=== PATIENT | female | born 1940 | race Caucasian/White ===

== ENCOUNTER 2018-09-15 13:47 | Inpatient (IN) | payer MEDICARE, OTHER | END 2018-09-16 16:46 | disposition home health service (06) | LOC: ER 13:47 → ORTHO 4S 17:18 ==

== ENCOUNTER 2019-02-07 11:32 | Emergency (ER) | payer MEDICARE, OTHER ==
[~2019-02-07] VITALS: Ht 152.4 cm; Wt 60.9 kg
[~2019-02-07 11:32] MED LIST: AMLO2.5T2 PO; ATOR20TA66 PO; BUPR150T8 PO; GABA-530 PO; LOSA25TA96 PO; MELO-100 PO; OMEP40CA13 PO
[2019-02-07 13:37] LABS: BASOPHILS % (AUTO) 0.2 % (0-1); EOSINOPHILS % (AUTO) 0 % (0-6); HEMATOCRIT 31.1 % (35.0-45.0); LYMPHOCYTES # (AUTO) 0.6 X10'3 (1.1-4.8); LYMPHOCYTES % (AUTO) 5.3 % (21-51); MEAN CORPUSCULAR HEMOGLOBIN 35.1 PG (27.0-31.0); MEAN CORPUSCULAR HGB CONC 35.2 g/dL (33.0-36.5); MEAN CORPUSCULAR VOLUME 99.7 FL (78-98); MEAN PLATELET VOLUME 8.2 FL (7.4-10.4); MONOCYTES # (AUTO) 0.2 X10'3 (0-0.9); MONOCYTES % (AUTO) 2.1 % (2-12); NEUTROPHILS % (AUTO) 92.4 % (42-75); PLATELET COUNT 157 X10'3 (140-440); RED BLOOD COUNT 3.12 X10'6 (4.20-5.60); RED CELL DISTRIBUTION WIDTH 12.9 % (11.5-14.5); WHITE BLOOD COUNT 10.8 X10'3 (4.5-11.0)
[2019-02-07 13:45] LABS: PARTIAL THROMBOPLASTIN TIME 33 SECONDS (22-32)
[2019-02-07 13:49] LABS: ALANINE AMINOTRANSFERASE 31 U/L (12-78); ALBUMIN 3.2 G/DL (3.4-5.0); ALBUMIN/GLOBULIN RATIO 0.9 (1.1-1.5); ALKALINE PHOSPHATASE 125 IU/L (46-116); ANION GAP 9 (8-16); ASPARTATE AMINO TRANSFERASE 33 U/L (10-37); BILIRUBIN,TOTAL 0.5 MG/DL (0.1-1.0); BLOOD UREA NITROGEN 17 MG/DL (7-18); BUN/CREATININE RATIO 15.6 (6.6-38.0); CALCIUM 8.8 MG/DL (8.5-10.1); CHLORIDE 95 MMOL/L (99-107); CREATININE 1.09 MG/DL (0.40-0.90); GLUCOSE 102 MG/DL (70-104); POTASSIUM 4.1 MMOL/L (3.5-5.1); SODIUM 128 MMOL/L (135-145); TOTAL CARBON DIOXIDE 23.8 MMOL/L (24-32); TOTAL PROTEIN 6.8 G/DL (6.4-8.2); eGFR 49 ML/MIN
[2019-02-07] MEDS ORDERED: CefTRIAXone 2gm/D5W 50ml 50 ML IV ONE (14:25)
[2019-02-07] MEDS ORDERED: normal saline 1000ML IV soln IV ONE (14:25)
[2019-02-07] MEDS ORDERED: albuterol 2.5 MG/3 ML nebule NEB ONE (14:25)
[2019-02-07 15:54] LABS: CLARITY,URINE CLOUDY (Clear); COLOR,URINE YELLOW (Yellow); GLUCOSE, URINE NEGATIVE (Neg); KETONES,URINE NEGATIVE (Neg); LEUKOCYTE ESTERASE ,URINE TRACE (Neg); NITRITES, URINE NEGATIVE (Neg); OCCULT BLOOD,URINE NEGATIVE (Neg); PROTEIN,URINE 30 mg/dl (Neg); UROBILINOGEN,URINE 0.2 E.U/dL (0.2-1.0)
[2019-02-07 15:55] LABS: UA COLLECTION TYPE CLN CATCH MIDSTREAM
[2019-02-07 15:59] LABS: BACTERIA,URINE 3+ /HPF (Neg); MUCUS STRANDS FEW /LPF (Neg); RBC,URINE 0-2 /HPF (0-2); SQUAMOUS EPITHELIAL CELL,UR MANY /LPF (FEW); WBC,URINE 0-4 /HPF (0-4)
[2019-02-07] MEDS ORDERED: LEVO750T21 PO (16:37)
[2019-02-07 16:55] VITALS: BP 122/59
== END 2019-02-07 17:02 | disposition home or self-care (01) ==
LOC: ER 11:32
DX: J18.9 Pneumonia, unspecified organism (principal); E86.0 Dehydration; E78.00 Pure hypercholesterolemia, unspecified; I10 Essential (primary) hypertension; R79.1 Abnormal coagulation profile; Z90.49 Acquired absence of other specified parts of digestive tract; Z90.89 Acquired absence of other organs; Z98.890 Other specified postprocedural states; Z79.899 Other long term (current) drug therapy
CPT/HCPCS: 36415; 71045; 80053; 81001; 83605; 84145; 84484; 85025; 85610; 85730; 87040; 93005; 94640; 94760; 96365; 99284; J0696; J7030

== ENCOUNTER 2019-09-04 11:22 | Emergency (ER) | payer MEDICARE, OTHER ==
[~2019-09-04] VITALS: Ht 154.9 cm; Wt 59.9 kg
[~2019-09-04 11:22] MED LIST changes: +ASPI-1265 PO; -ATOR20TA66 PO; +ATOR40TA PO; -LOSA25TA96 PO; +MECL-184 PO; +MELA5TAB12 PO; +OLME40TA13 PO
[2019-09-04 12:31] VITALS: BP 150/86
[2019-09-04] MEDS ORDERED: TETanus/Pertussis (Acell)/Diphther VAC/PF (Tdap-Adult) 0.5ml syringe IMVAC ONE (12:40)
[2019-09-04] MEDS ORDERED: LIDOcaine 1% W/epiNEPHrine 1:100,000 20ml vial SQ ONE (13:15)
== END 2019-09-04 13:52 | disposition home or self-care (01) ==
LOC: ER 11:23
DX: S01.01XA Laceration without foreign body of scalp, initial encounter (principal); E78.00 Pure hypercholesterolemia, unspecified; I10 Essential (primary) hypertension; Z90.49 Acquired absence of other specified parts of digestive tract; Z98.890 Other specified postprocedural states; Z79.82 Long term (current) use of aspirin; Z79.899 Other long term (current) drug therapy; W18.30XA Fall on same level, unspecified, initial encounter; Y93.89 Activity, other specified; Y92.89 Other specified places as the place of occurrence of the external cause; Y99.9 Unspecified external cause status
CPT/HCPCS: 12001; 70450; 90471; 90715; 99284

== ENCOUNTER 2019-09-12 14:19 | Emergency (ER) | payer MEDICARE, OTHER ==
[~2019-09-12] VITALS: Ht 152.4 cm; Wt 60.0 kg
[2019-09-12 14:39] VITALS: BP 163/99
== END 2019-09-12 14:56 | disposition home or self-care (01) ==
LOC: ER 14:19
DX: S01.01XD Laceration without foreign body of scalp, subsequent encounter (principal); E78.00 Pure hypercholesterolemia, unspecified; I10 Essential (primary) hypertension; Z90.49 Acquired absence of other specified parts of digestive tract; Z98.890 Other specified postprocedural states; Z72.89 Other problems related to lifestyle; Z79.899 Other long term (current) drug therapy; W18.39XD Other fall on same level, subsequent encounter
CPT/HCPCS: 99284

== ENCOUNTER 2020-11-06 10:22 | Emergency (ER) | payer MEDICARE, OTHER ==
[~2020-11-06] VITALS: Ht 152.4 cm; Wt 67.3 kg
[~2020-11-06 10:22] MED LIST changes: -MECL-184 PO; +MECL-231 PO; -OMEP40CA13 PO; +OMEP40CA21 PO
[2020-11-06 11:28] LABS: CLARITY,URINE SLIGHTLY CLOUDY (Clear); COLOR,URINE YELLOW (Yellow); GLUCOSE, URINE NEGATIVE (Neg); KETONES,URINE NEGATIVE (Neg); LEUKOCYTE ESTERASE ,URINE MODERATE (Neg); NITRITES, URINE NEGATIVE (Neg); OCCULT BLOOD,URINE NEGATIVE (Neg); PROTEIN,URINE NEGATIVE (Neg); UROBILINOGEN,URINE 0.2 E.U/dL (0.2-1.0)
[2020-11-06 11:30] LABS: BASOPHILS # (AUTO) 0.1 X10'3 (0-0.2); BASOPHILS % (AUTO) 0.9 % (0-1); EOSINOPHILS # (AUTO) 0.3 X10'3 (0-0.9); EOSINOPHILS % (AUTO) 4.2 % (0-6); HEMATOCRIT 33.7 % (35.0-45.0); HEMOGLOBIN 11.6 g/dl (12.0-16.0); LYMPHOCYTES # (AUTO) 1.6 X10'3 (1.1-4.8); MEAN CORPUSCULAR HEMOGLOBIN 33.8 PG (27.0-31.0); MEAN CORPUSCULAR HGB CONC 34.4 g/dL (33.0-36.5); MEAN CORPUSCULAR VOLUME 98.3 FL (78-98); MEAN PLATELET VOLUME 7.9 FL (7.4-10.4); MONOCYTES # (AUTO) 0.5 X10'3 (0-0.9); MONOCYTES % (AUTO) 7.3 % (2-12); NEUTROPHILS # (AUTO) 4.9 X10'3 (1.8-7.7); NEUTROPHILS % (AUTO) 66.6 % (42-75); PLATELET COUNT 263 X10'3 (140-440); RED BLOOD COUNT 3.42 X10'6 (4.20-5.60); RED CELL DISTRIBUTION WIDTH 12.4 % (11.5-14.5); WHITE BLOOD COUNT 7.4 X10'3 (4.5-11.0)
[2020-11-06 11:30] LABS: UA COLLECTION TYPE CLN CATCH MIDSTREAM
[2020-11-06 11:36] LABS: BACTERIA,URINE 1+ /HPF (Neg); RBC,URINE NONE SEEN /HPF (0-2)
[2020-11-06 11:37] LABS: MUCUS STRANDS FEW /LPF (Neg); SQUAMOUS EPITHELIAL CELL,UR MANY /LPF (FEW); TRANSITIONAL EPI CELLS,URINE FEW /HPF
[2020-11-06 11:51] LABS: ALANINE AMINOTRANSFERASE 25 U/L (12-78); ALBUMIN 3.6 G/DL (3.4-5.0); ALKALINE PHOSPHATASE 189 IU/L (46-116); ANION GAP 7 (8-16); ASPARTATE AMINO TRANSFERASE 18 U/L (10-37); BILIRUBIN,TOTAL 0.4 MG/DL (0.1-1.0); BLOOD UREA NITROGEN 20 MG/DL (7-18); BUN/CREATININE RATIO 20.4 (6.6-38.0); CALCIUM 8.9 MG/DL (8.5-10.1); CHLORIDE 103 MMOL/L (99-107); CREATININE 0.98 MG/DL (0.40-0.90); GLUCOSE 87 MG/DL (70-104); LIPASE 92 U/L (73-393); POTASSIUM 4.9 MMOL/L (3.5-5.1); SODIUM 137 MMOL/L (135-145); TOTAL PROTEIN 7.2 G/DL (6.4-8.2); eGFR 55 ML/MIN
[2020-11-06] MEDS ORDERED: iohexol 300mg/ml 100ml inj. ONE (12:08)
--- NOTE | 2020-11-06 12:27 | NUR ---
BACK FROM CT SCAN STABLE CONDITION. WARM BLANKET GIVEN.
--- NOTE | 2020-11-06 12:53 | NUR ---
patient ambulated self to the bathroom with steady gait.
--- NOTE | 2020-11-06 12:55 | NUR ---
UP TO BR X2 VOIDED CLEAR YELLOW URINE
[2020-11-06] MEDS ORDERED: morphine 4 MG/ML inj SYRINge IV ONE (13:20)
[2020-11-06] MEDS ORDERED: magnesium citrate 296ml oral solution PO ONE (14:05)
[2020-11-06] MEDS ORDERED: LINA145C PO (14:05)
[2020-11-06 15:04] VITALS: BP 128/85
== END 2020-11-06 15:40 | disposition home or self-care (01) ==
LOC: ER 10:22
DX: K59.00 Constipation, unspecified (principal); E78.00 Pure hypercholesterolemia, unspecified; I10 Essential (primary) hypertension; Z90.49 Acquired absence of other specified parts of digestive tract; Z98.890 Other specified postprocedural states; Z79.82 Long term (current) use of aspirin; Z79.899 Other long term (current) drug therapy
CPT/HCPCS: 36415; 74177; 80053; 81001; 83690; 85025; 96374; 99285; J2270; Q9967

== ENCOUNTER 2020-12-29 09:20 | Inpatient (IN) | payer MEDICARE, OTHER ==
[~2020-12-29] VITALS: Ht 152.4 cm; Wt 70.7 kg
[~2020-12-29 09:20] MED LIST changes: +LINA145C PO
[2020-12-29 11:59] LABS: BASOPHILS # (AUTO) 0.1 X10'3 (0-0.2); BASOPHILS % (AUTO) 0.7 % (0-1); EOSINOPHILS # (AUTO) 0.4 X10'3 (0-0.9); MEAN CORPUSCULAR HGB CONC 32.9 g/dL (33.0-36.5); MEAN CORPUSCULAR VOLUME 100.1 FL (78-98); MEAN PLATELET VOLUME 7.6 FL (7.4-10.4); MONOCYTES # (AUTO) 0.4 X10'3 (0-0.9); MONOCYTES % (AUTO) 3.5 % (2-12); NEUTROPHILS # (AUTO) 10.5 X10'3 (1.8-7.7); NEUTROPHILS % (AUTO) 84.8 % (42-75); PLATELET COUNT 446 X10'3 (140-440); RED CELL DISTRIBUTION WIDTH 13.8 % (11.5-14.5); WHITE BLOOD COUNT 12.3 X10'3 (4.5-11.0)
[2020-12-29 12:00] LABS: HEMOGLOBIN 6.6 g/dl (12.0-16.0)
[2020-12-29 12:50] LABS: ALANINE AMINOTRANSFERASE 25 U/L (12-78); ALBUMIN 3.1 G/DL (3.4-5.0); ALBUMIN/GLOBULIN RATIO 0.9 (1.1-1.5); ALKALINE PHOSPHATASE 149 IU/L (46-116); ANION GAP 9 (8-16); ASPARTATE AMINO TRANSFERASE 17 U/L (10-37); BILIRUBIN,TOTAL 0.3 MG/DL (0.1-1.0); BLOOD UREA NITROGEN 18 MG/DL (7-18); BUN/CREATININE RATIO 15.8 (6.6-38.0); CALCIUM 8.9 MG/DL (8.5-10.1); CHLORIDE 102 MMOL/L (99-107); CREATININE 1.14 MG/DL (0.40-0.90); GLUCOSE 110 MG/DL (70-104); LIPASE < 50 U/L (73-393); SODIUM 135 MMOL/L (135-145); TOTAL PROTEIN 6.6 G/DL (6.4-8.2); eGFR 46 ML/MIN
[2020-12-29] MEDS ORDERED: iohexol 300mg/ml 100ml inj. ONE (12:54)
[2020-12-29 13:04] LABS: PARTIAL THROMBOPLASTIN TIME 30 SECONDS (22-32)
[2020-12-29 14:04] LABS: CLARITY,URINE CLEAR (Clear); COLOR,URINE YELLOW (Yellow); GLUCOSE, URINE NEGATIVE (Neg); KETONES,URINE NEGATIVE (Neg); LEUKOCYTE ESTERASE ,URINE SMALL (Neg); NITRITES, URINE NEGATIVE (Neg); OCCULT BLOOD,URINE NEGATIVE (Neg); PH,URINE 5.5 (4.8-8.0); PROTEIN,URINE NEGATIVE (Neg); UROBILINOGEN,URINE 0.2 E.U/dL (0.2-1.0)
[2020-12-29 14:14] LABS: UA COLLECTION TYPE CLN CATCH MIDSTREAM
[2020-12-29 14:18] LABS: MUCUS STRANDS FEW /LPF (Neg); SQUAMOUS EPITHELIAL CELL,UR MODERATE /LPF (FEW); TRANSITIONAL EPI CELLS,URINE MODERATE /HPF
[2020-12-29 14:19] LABS: BACTERIA,URINE 1+ /HPF (Neg); RBC,URINE 0-2 /HPF (0-2); WBC,URINE 0-4 /HPF (0-4)
[2020-12-29] MEDS ORDERED: CefTRIAXone/D5W-Rocephin 1gm 50 ML IV ONE (15:20)
[2020-12-29] MEDS ORDERED: morphine 4 MG/ML inj SYRINge IV ONE ×2 (15:40→22:45)
[2020-12-29] MEDS ORDERED: mag hydrox/Alum hydrox/simeth 30ml oral suspension PO PRN (15:40)
[2020-12-29] MEDS ORDERED: acetaminophen 325mg tablet PO PRN (15:40)
[2020-12-29] MEDS ORDERED: magnesium hydroxide 30ml (MOM) UD suspension PO PRN (15:40)
[2020-12-29] MEDS ORDERED: ondansetron/PF 4mg/2ml inj IV PRN (15:40)
[2020-12-29] MEDS ORDERED: ondansetron/PF 4mg/2ml inj IV ONE (15:40)
[2020-12-29] MEDS ORDERED: ATOR20TA66 PO (15:47)
[2020-12-29] MEDS ORDERED: AMLO5TAB16 PO (15:49)
[2020-12-29] MEDS ORDERED: BUPR-114 PO (15:49)
[2020-12-29] MEDS: normal saline 1000ml 1,000 ML IV SCH (15:57)
[2020-12-29] MEDS: pantoprazole 40MG/NS 100ML BAG 100 ML IV SCH ×2 (18:08→21:19)
[2020-12-29] MEDS: docusate sod 100mg capsule PO SCH (18:40)
[2020-12-29] MEDS: gabapentin 100mg capsule PO SCH (18:40)
[2020-12-29] MEDS ORDERED: non-formulary drug (Melatonin 1 TAB) PO SCH (21:00)
[2020-12-29 22:00] LABS: HEMOGLOBIN 7.8 g/dl (12.0-16.0); MEAN CORPUSCULAR HEMOGLOBIN 33.4 PG (27.0-31.0); MEAN CORPUSCULAR VOLUME 98.1 FL (78-98); MEAN PLATELET VOLUME 7.3 FL (7.4-10.4); PLATELET COUNT 375 X10'3 (140-440); RED BLOOD COUNT 2.34 X10'6 (4.20-5.60); RED CELL DISTRIBUTION WIDTH 13.9 % (11.5-14.5)
[2020-12-29] MEDS ORDERED: morphine 2 MG/ML inj. syringe IV PRN (22:50)
[2020-12-30] VITALS (11 sets, daily range): BP systolic 107–151; BP diastolic 48–68
[2020-12-30] MEDS: pantoprazole 40MG/NS 100ML BAG 100 ML IV SCH ×4 (01:25→21:30)
[2020-12-30] MEDS: normal saline 1000ml 1,000 ML IV SCH ×2 (01:43→16:28)
[2020-12-30 04:38] LABS: BASOPHILS # (AUTO) 0.1 X10'3 (0-0.2); BASOPHILS % (AUTO) 1.3 % (0-1); EOSINOPHILS # (AUTO) 0.5 X10'3 (0-0.9); EOSINOPHILS % (AUTO) 6.7 % (0-6); HEMATOCRIT 22.7 % (35.0-45.0); HEMOGLOBIN 7.5 g/dl (12.0-16.0); LYMPHOCYTES # (AUTO) 1.1 X10'3 (1.1-4.8); LYMPHOCYTES % (AUTO) 14.7 % (21-51); MEAN CORPUSCULAR HEMOGLOBIN 32.5 PG (27.0-31.0); MEAN CORPUSCULAR VOLUME 98.7 FL (78-98); MEAN PLATELET VOLUME 7.9 FL (7.4-10.4); MONOCYTES # (AUTO) 0.4 X10'3 (0-0.9); MONOCYTES % (AUTO) 4.8 % (2-12); NEUTROPHILS # (AUTO) 5.4 X10'3 (1.8-7.7); NEUTROPHILS % (AUTO) 72.5 % (42-75); PLATELET COUNT 359 X10'3 (140-440); RED CELL DISTRIBUTION WIDTH 14.4 % (11.5-14.5); WHITE BLOOD COUNT 7.4 X10'3 (4.5-11.0)
[2020-12-30 05:04] LABS: ALBUMIN 2.6 G/DL (3.4-5.0); ANION GAP 10 (8-16); BLOOD UREA NITROGEN 12 MG/DL (7-18); BUN/CREATININE RATIO 12.2 (6.6-38.0); CHLORIDE 106 MMOL/L (99-107); CREATININE 0.98 MG/DL (0.40-0.90); GLUCOSE 76 MG/DL (70-104); POTASSIUM 4.5 MMOL/L (3.5-5.1); SODIUM 140 MMOL/L (135-145); TOTAL CARBON DIOXIDE 24.3 MMOL/L (24-32); eGFR 55 ML/MIN
--- NOTE | 2020-12-30 06:37 | NUR ---
Patient in room ED 8. I have received report from PRESLEY JEFFERY and had the opportunity to ask questions and awaiting patients arrival
[2020-12-30] MEDS: buPROPion SR 150mg tablet PO SCH (08:00)
[2020-12-30] MEDS: docusate sod 100mg capsule PO SCH ×2 (08:37→20:00)
[2020-12-30] MEDS: losartan 50mg tablet PO SCH (08:37)
[2020-12-30] MEDS: amLODIPine 5mg tablet PO SCH (08:37)
[2020-12-30] MEDS: atorvastatin 20mg tablet PO SCH (08:38)
[2020-12-30 10:24] LABS: HEMOGLOBIN 7.5 g/dl (12.0-16.0); MEAN CORPUSCULAR HEMOGLOBIN 33.4 PG (27.0-31.0); MEAN CORPUSCULAR HGB CONC 33.9 g/dL (33.0-36.5); MEAN CORPUSCULAR VOLUME 98.4 FL (78-98); MEAN PLATELET VOLUME 7.5 FL (7.4-10.4); PLATELET COUNT 358 X10'3 (140-440); RED BLOOD COUNT 2.24 X10'6 (4.20-5.60); RED CELL DISTRIBUTION WIDTH 13.9 % (11.5-14.5)
[2020-12-30] MEDS ORDERED: LIDOcaine Viscous 15ml cup ONE (10:57)
[2020-12-30] MEDS ORDERED: fentaNYL/PF 50MCG/1 ML 2ML syringe ONE (10:57)
[2020-12-30] MEDS ORDERED: MIDAZolam 1 MG/ML 5ML VIAL ONE (10:57)
--- NOTE | 2020-12-30 14:23 | NUR ---
patient arrived on floor in stable condition protonix drip infusing. A&O x4. No c/o pain. went for EGD 1130hrs. Result in chart. Order given per Dr Jeffers to recommence clear lqd diet. patient resting in bed. VSS.
[2020-12-30] MEDS ORDERED: sucralfate 1gm/10ml UD suspension PO SCH (16:00)
[2020-12-30 16:12] LABS: HEMATOCRIT 24.2 % (35.0-45.0); HEMOGLOBIN 8.1 g/dl (12.0-16.0); MEAN CORPUSCULAR HEMOGLOBIN 33.3 PG (27.0-31.0); MEAN CORPUSCULAR HGB CONC 33.6 g/dL (33.0-36.5); MEAN CORPUSCULAR VOLUME 99.1 FL (78-98); MEAN PLATELET VOLUME 7.4 FL (7.4-10.4); PLATELET COUNT 390 X10'3 (140-440); RED BLOOD COUNT 2.44 X10'6 (4.20-5.60); RED CELL DISTRIBUTION WIDTH 14.4 % (11.5-14.5); WHITE BLOOD COUNT 7.3 X10'3 (4.5-11.0)
[2020-12-30] MEDS: sucralfate 1 gm tablet PO SCH ×2 (16:28→19:52)
--- NOTE | 2020-12-30 18:00 | NUR ---
Patient in room PCU 3018. I have received report from Rigoberto and had the opportunity to ask questions and assume patient care.
--- NOTE | 2020-12-30 18:00 | NUR ---
Patient in room PCU 3018. I have received report from Rigoberto and had the opportunity to ask questions and assume patient care.
--- NOTE | 2020-12-30 18:27 | NUR ---
Problems reprioritized. Patient report given, questions answered & plan of care reviewed with Yen JEFFERY.
[2020-12-30] MEDS: gabapentin 100mg capsule PO SCH (19:52)
[2020-12-30 21:27] LABS: HEMATOCRIT 25.4 % (35.0-45.0); HEMOGLOBIN 8.2 g/dl (12.0-16.0); MEAN CORPUSCULAR HGB CONC 32.4 g/dL (33.0-36.5); MEAN CORPUSCULAR VOLUME 101.8 FL (78-98); MEAN PLATELET VOLUME 7.3 FL (7.4-10.4); PLATELET COUNT 361 X10'3 (140-440); RED BLOOD COUNT 2.49 X10'6 (4.20-5.60); RED CELL DISTRIBUTION WIDTH 14.7 % (11.5-14.5); WHITE BLOOD COUNT 6.9 X10'3 (4.5-11.0)
[2020-12-31 02:00] VITALS: BP 129/51
[2020-12-31] MEDS: pantoprazole 40MG/NS 100ML BAG 100 ML IV SCH ×4 (03:35→17:45)
[2020-12-31 04:08] LABS: BASOPHILS # (AUTO) 0.1 X10'3 (0-0.2); BASOPHILS % (AUTO) 0.9 % (0-1); EOSINOPHILS # (AUTO) 0.3 X10'3 (0-0.9); EOSINOPHILS % (AUTO) 3.1 % (0-6); HEMOGLOBIN 7.1 g/dl (12.0-16.0); LYMPHOCYTES # (AUTO) 0.9 X10'3 (1.1-4.8); LYMPHOCYTES % (AUTO) 9.9 % (21-51); MEAN CORPUSCULAR HEMOGLOBIN 32.8 PG (27.0-31.0); MEAN CORPUSCULAR HGB CONC 33.4 g/dL (33.0-36.5); MEAN CORPUSCULAR VOLUME 98.3 FL (78-98); MEAN PLATELET VOLUME 7.5 FL (7.4-10.4); MONOCYTES # (AUTO) 0.3 X10'3 (0-0.9); MONOCYTES % (AUTO) 2.9 % (2-12); NEUTROPHILS # (AUTO) 7.8 X10'3 (1.8-7.7); NEUTROPHILS % (AUTO) 83.2 % (42-75); PLATELET COUNT 353 X10'3 (140-440); RED BLOOD COUNT 2.16 X10'6 (4.20-5.60); WHITE BLOOD COUNT 9.4 X10'3 (4.5-11.0)
[2020-12-31 04:10] LABS: ALBUMIN 2.4 G/DL (3.4-5.0); ANION GAP 9 (8-16); BLOOD UREA NITROGEN 8 MG/DL (7-18); BUN/CREATININE RATIO 9.8 (6.6-38.0); CALCIUM 8.2 MG/DL (8.5-10.1); CHLORIDE 105 MMOL/L (99-107); CREATININE 0.82 MG/DL (0.40-0.90); GLUCOSE 87 MG/DL (70-104); SODIUM 137 MMOL/L (135-145); TOTAL CARBON DIOXIDE 22.9 MMOL/L (24-32); eGFR 67 ML/MIN
[2020-12-31 04:11] LABS: HEMATOCRIT 21.2 % (35.0-45.0)
--- NOTE | 2020-12-31 04:17 | NUR ---
Was informed of critical value from charge nurse, Justina. HGB 7.1 and HCT of 21.2. dr singh called and informed of both critical values, response was "good".
[2020-12-31 06:00] VITALS: BP 135/54
--- NOTE | 2020-12-31 06:30 | NUR ---
Problems reprioritized. Patient report given, questions answered & plan of care reviewed with Elisa.
--- NOTE | 2020-12-31 06:49 | NUR ---
Patient in room PCU 3018. I have received report from Yen JEFFERY and had the opportunity to ask questions and assume patient care. Pt supine in bed with covers pulled up to chin, chest rising and falling evenly, CL within reach, SRx2, BL, protonix running. no s/sx acute distresss
[2020-12-31] MEDS: sucralfate 1 gm tablet PO SCH ×4 (07:36→22:32)
[2020-12-31] MEDS: normal saline 1000ml 1,000 ML IV SCH ×2 (07:39→17:44)
[2020-12-31] MEDS: buPROPion SR 150mg tablet PO SCH (08:00)
[2020-12-31] MEDS: atorvastatin 20mg tablet PO SCH ×2 (09:21→22:31)
[2020-12-31] MEDS: docusate sod 100mg capsule PO SCH ×2 (09:22→20:00)
[2020-12-31] MEDS: losartan 50mg tablet PO SCH (09:22)
[2020-12-31] MEDS: amLODIPine 5mg tablet PO SCH (09:22)
[2020-12-31] MEDS: meclizine 12.5mg tablet PO PRN ×2 (09:25→22:40)
[2020-12-31 10:09] LABS: HEMOGLOBIN 7.7 g/dl (12.0-16.0); MEAN CORPUSCULAR HEMOGLOBIN 32.8 PG (27.0-31.0); MEAN CORPUSCULAR HGB CONC 33.7 g/dL (33.0-36.5); MEAN CORPUSCULAR VOLUME 97.1 FL (78-98); MEAN PLATELET VOLUME 7.3 FL (7.4-10.4); PLATELET COUNT 349 X10'3 (140-440); RED BLOOD COUNT 2.37 X10'6 (4.20-5.60); RED CELL DISTRIBUTION WIDTH 13.9 % (11.5-14.5); WHITE BLOOD COUNT 8.5 X10'3 (4.5-11.0)
[2020-12-31 11:00] VITALS: BP 126/54
[2020-12-31] MEDS ORDERED: polyethylene glycol 3350 17gm powd pack PO ONE (11:00)
--- NOTE | 2020-12-31 11:14 | NUR ---
Dr Austin into see pt discussed options with family. new order UA C Culture if ind. Dr. austin indicated wanting rn case manager hospice august to discuss options as well with pt and her family. August notified and spoke with fam. Addendum: 12/31/20 at 1818 by Pati Arenas RN error wrong chart. disregard above note.
[2020-12-31 15:00] VITALS: BP 123/48
[2020-12-31 16:21] LABS: HEMATOCRIT 22.5 % (35.0-45.0); HEMOGLOBIN 7.7 g/dl (12.0-16.0); MEAN CORPUSCULAR HGB CONC 34.1 g/dL (33.0-36.5); MEAN CORPUSCULAR VOLUME 96.9 FL (78-98); MEAN PLATELET VOLUME 7.5 FL (7.4-10.4); PLATELET COUNT 368 X10'3 (140-440); RED BLOOD COUNT 2.32 X10'6 (4.20-5.60); RED CELL DISTRIBUTION WIDTH 13.9 % (11.5-14.5); WHITE BLOOD COUNT 6.9 X10'3 (4.5-11.0)
[2020-12-31 18:00] VITALS: BP 142/54
--- NOTE | 2020-12-31 18:19 | NUR ---
Problems reprioritized. Patient report given, questions answered & plan of care reviewed with Jennifer JEFFERY. Pt sitting up at bedsdie eating dinner. safety measures in place.
[2020-12-31] MEDS ORDERED: polyethylene glycol 3350 17gm powd pack PO SCH (21:00)
[2020-12-31 22:00] VITALS: BP 132/56
[2020-12-31 22:26] LABS: HEMOGLOBIN 7.4 g/dl (12.0-16.0); MEAN CORPUSCULAR HEMOGLOBIN 33.3 PG (27.0-31.0); MEAN CORPUSCULAR HGB CONC 34.7 g/dL (33.0-36.5); MEAN CORPUSCULAR VOLUME 95.9 FL (78-98); MEAN PLATELET VOLUME 7.3 FL (7.4-10.4); PLATELET COUNT 354 X10'3 (140-440); RED BLOOD COUNT 2.21 X10'6 (4.20-5.60); RED CELL DISTRIBUTION WIDTH 13.9 % (11.5-14.5); WHITE BLOOD COUNT 6.1 X10'3 (4.5-11.0)
[2020-12-31 22:30] LABS: HEMATOCRIT 21.2 % (35.0-45.0)
[2020-12-31] MEDS: gabapentin 100mg capsule PO SCH (22:32)
--- NOTE | 2020-12-31 23:00 | NUR ---
MD PEREZ NOTIFIED OF CRITICAL H/H. NO ORDERS GIVEN.
[2021-01-01] MEDS: pantoprazole 40MG/NS 100ML BAG 100 ML IV SCH ×4 (00:31→11:00)
[2021-01-01 02:00] VITALS: BP 150/44
[2021-01-01] MEDS: normal saline 1000ml 1,000 ML IV SCH ×2 (03:40→06:48)
[2021-01-01 06:00] VITALS: BP 163/68
[2021-01-01] MEDS: sucralfate 1 gm tablet PO SCH ×2 (06:46→11:51)
[2021-01-01 06:53] LABS: BASOPHILS # (AUTO) 0.1 X10'3 (0-0.2); BASOPHILS % (AUTO) 1.3 % (0-1); EOSINOPHILS # (AUTO) 0.3 X10'3 (0-0.9); EOSINOPHILS % (AUTO) 7.4 % (0-6); HEMOGLOBIN 7.3 g/dl (12.0-16.0); LYMPHOCYTES # (AUTO) 1.1 X10'3 (1.1-4.8); LYMPHOCYTES % (AUTO) 24.1 % (21-51); MEAN CORPUSCULAR HEMOGLOBIN 32.5 PG (27.0-31.0); MEAN CORPUSCULAR HGB CONC 33.5 g/dL (33.0-36.5); MEAN CORPUSCULAR VOLUME 97.1 FL (78-98); MEAN PLATELET VOLUME 7.4 FL (7.4-10.4); MONOCYTES # (AUTO) 0.3 X10'3 (0-0.9); MONOCYTES % (AUTO) 5.9 % (2-12); NEUTROPHILS # (AUTO) 2.9 X10'3 (1.8-7.7); NEUTROPHILS % (AUTO) 61.3 % (42-75); PLATELET COUNT 350 X10'3 (140-440); RED BLOOD COUNT 2.25 X10'6 (4.20-5.60); RED CELL DISTRIBUTION WIDTH 14.1 % (11.5-14.5); WHITE BLOOD COUNT 4.7 X10'3 (4.5-11.0)
[2021-01-01 06:58] LABS: HEMATOCRIT 21.8 % (35.0-45.0)
--- NOTE | 2021-01-01 07:08 | NUR ---
Paged Dr Jeffers PAGER ID: [phone] MESSAGE: Room 3018B. Collette Kitchen. Critical H/H .8. Thanks, Day [phone]
[2021-01-01 07:09] LABS: ALBUMIN 2.6 G/DL (3.4-5.0); ANION GAP 9 (8-16); BLOOD UREA NITROGEN 10 MG/DL (7-18); BUN/CREATININE RATIO 10.4 (6.6-38.0); CALCIUM 8.1 MG/DL (8.5-10.1); CHLORIDE 109 MMOL/L (99-107); CREATININE 0.96 MG/DL (0.40-0.90); GLUCOSE 92 MG/DL (70-104); SODIUM 142 MMOL/L (135-145); TOTAL CARBON DIOXIDE 24.3 MMOL/L (24-32); eGFR 56 ML/MIN
[2021-01-01] MEDS: docusate sod 100mg capsule PO SCH (07:44)
[2021-01-01] MEDS: losartan 50mg tablet PO SCH (07:44)
[2021-01-01] MEDS: amLODIPine 5mg tablet PO SCH (07:44)
[2021-01-01 10:25] VITALS: BP 154/63
[2021-01-01 11:25] VITALS: BP 135/62
[2021-01-01 12:25] VITALS: BP 153/74
[2021-01-01] MEDS ORDERED: clarithromycin 250mg tablet PO SCH (12:48)
[2021-01-01] MEDS ORDERED: amoxicillin 250mg capsule PO SCH (12:48)
[2021-01-01 12:52] VITALS: BP 158/62
[2021-01-01] MEDS ORDERED: CLAR500T22 PO (13:34)
[2021-01-01] MEDS ORDERED: AMOX500C2 PO (13:34)
[2021-01-01] MEDS ORDERED: PANT40TA54 PO (13:34)
[2021-01-01] MEDS ORDERED: SUCR1TAB34 PO (13:34)
[2021-01-01 14:44] LABS: HEMATOCRIT 30.2 % (35.0-45.0); HEMOGLOBIN 10.4 g/dl (12.0-16.0); MEAN CORPUSCULAR HEMOGLOBIN 32.4 PG (27.0-31.0); MEAN CORPUSCULAR HGB CONC 34.6 g/dL (33.0-36.5); MEAN CORPUSCULAR VOLUME 93.7 FL (78-98); MEAN PLATELET VOLUME 7.3 FL (7.4-10.4); PLATELET COUNT 397 X10'3 (140-440); RED BLOOD COUNT 3.22 X10'6 (4.20-5.60); RED CELL DISTRIBUTION WIDTH 16.4 % (11.5-14.5); WHITE BLOOD COUNT 7.8 X10'3 (4.5-11.0)
--- NOTE | 2021-01-01 15:10 | NUR ---
Pt stable for D/C per MD orders. Pt stable for D/C - PIV's and tele box # 10 removed. Pt tolerated well. Pt was able to get dressed with no assistance. All D/C ppwk was reviewed with patient and patient son. New RX was sent to [facility] on [facility]. Pt did not want to wait for 1st dose of abx as pharmacy had not brought them up yet. Education provided on abx treatment and duration. Pt verbalized understanding of all ppwk and does not have any questions at this time. Pt was wheeled out in W/C by nursing staff to private vehicle where son was waiting.
== END 2021-01-01 15:16 | disposition home or self-care (01) | DRG 378 ==
LOC: ER 09:20 → ED HOLD 15:40 → PCU 3S 12-30 07:30
PROVIDERS: ADMIT Family Medicine; ATTEND Family Medicine
PROC: 30233N1 Transfusion of Nonautologous Red Blood Cells into Peripheral Vein, Percutaneous Approach (ICD-10-PCS; principal; 2020-12-29)
PROC: BW211ZZ Computerized Tomography (CT Scan) of Abdomen and Pelvis using Low Osmolar Contrast (ICD-10-PCS; 2020-12-29)
PROC: 0DB68ZX Excision of Stomach, Via Natural or Artificial Opening Endoscopic, Diagnostic (ICD-10-PCS; 2020-12-30)
DX: K25.4 Chronic or unspecified gastric ulcer with hemorrhage (principal); D62 Acute posthemorrhagic anemia; I10 Essential (primary) hypertension; E78.5 Hyperlipidemia, unspecified; K21.9 Gastro-esophageal reflux disease without esophagitis; B96.81 Helicobacter pylori [H. pylori] as the cause of diseases classified elsewhere; E78.00 Pure hypercholesterolemia, unspecified; Z86.73 Personal history of transient ischemic attack (TIA), and cerebral infarction without residual deficits; Z90.49 Acquired absence of other specified parts of digestive tract; Z79.899 Other long term (current) drug therapy
CPT/HCPCS: 36415; 36430; 43239; 71045; 74177; 80048; 80053; 81001; 83690; 85025; 85027; 85610; 85730; 86870; 86885; 86900; 86901; 86920; 86922; 87081; 87088; 88305; 88313; 88342; 93005; 96374; 99152; 99291; A4620; C9113; G0378; J0696; J2250; J2270; J2405; J3010; J7030; J7040; J8597; P9016; Q9967

== ENCOUNTER 2021-01-08 15:33 | Emergency (ER) | payer MEDICARE, OTHER ==
[~2021-01-08] VITALS: Ht 152.4 cm; Wt 65.0 kg
[~2021-01-08 15:33] MED LIST changes: -AMLO2.5T2 PO; +AMLO5TAB16 PO; +AMOX500C2 PO; -ASPI-1265 PO; +ATOR20TA66 PO; -ATOR40TA PO; +BUPR-114 PO; -BUPR150T8 PO; +CLAR500T22 PO; -LINA145C PO; -MELO-100 PO; -OMEP40CA21 PO; +PANT40TA54 PO; +SUCR1TAB34 PO
[2021-01-08 16:18] LABS: BASOPHILS # (AUTO) 0.1 X10'3 (0-0.2); BASOPHILS % (AUTO) 1.1 % (0-1); EOSINOPHILS # (AUTO) 0.4 X10'3 (0-0.9); EOSINOPHILS % (AUTO) 5.7 % (0-6); HEMATOCRIT 30.6 % (35.0-45.0); HEMOGLOBIN 10.5 g/dl (12.0-16.0); LYMPHOCYTES # (AUTO) 1.3 X10'3 (1.1-4.8); LYMPHOCYTES % (AUTO) 18.5 % (21-51); MEAN CORPUSCULAR HEMOGLOBIN 32.3 PG (27.0-31.0); MEAN CORPUSCULAR HGB CONC 34.3 g/dL (33.0-36.5); MEAN CORPUSCULAR VOLUME 94.2 FL (78-98); MEAN PLATELET VOLUME 7.4 FL (7.4-10.4); MONOCYTES # (AUTO) 0.4 X10'3 (0-0.9); MONOCYTES % (AUTO) 5.1 % (2-12); NEUTROPHILS % (AUTO) 69.6 % (42-75); PLATELET COUNT 279 X10'3 (140-440); RED BLOOD COUNT 3.25 X10'6 (4.20-5.60); RED CELL DISTRIBUTION WIDTH 15.5 % (11.5-14.5); WHITE BLOOD COUNT 7.2 X10'3 (4.5-11.0)
[2021-01-08 16:38] LABS: ALANINE AMINOTRANSFERASE 24 U/L (12-78); ALBUMIN 3.5 G/DL (3.4-5.0); ALBUMIN/GLOBULIN RATIO 1.1 (1.1-1.5); ALKALINE PHOSPHATASE 193 IU/L (46-116); ANION GAP 12 (8-16); ASPARTATE AMINO TRANSFERASE 22 U/L (10-37); BILIRUBIN,TOTAL 0.7 MG/DL (0.1-1.0); BLOOD UREA NITROGEN 15 MG/DL (7-18); BUN/CREATININE RATIO 14.2 (6.6-38.0); CALCIUM 8.6 MG/DL (8.5-10.1); CHLORIDE 98 MMOL/L (99-107); CREATININE 1.06 MG/DL (0.40-0.90); GLUCOSE 114 MG/DL (70-104); POTASSIUM 4.1 MMOL/L (3.5-5.1); SODIUM 133 MMOL/L (135-145); TOTAL CARBON DIOXIDE 23.3 MMOL/L (24-32); TOTAL PROTEIN 6.8 G/DL (6.4-8.2); eGFR 50 ML/MIN
[2021-01-08 18:11] VITALS: BP 144/62
== END 2021-01-08 18:16 | disposition home or self-care (01) ==
LOC: ER 15:34
DX: E87.1 Hypo-osmolality and hyponatremia (principal); D64.9 Anemia, unspecified; E78.00 Pure hypercholesterolemia, unspecified; I10 Essential (primary) hypertension; Z90.89 Acquired absence of other organs; Z98.890 Other specified postprocedural states; Z79.2 Long term (current) use of antibiotics; Z79.899 Other long term (current) drug therapy
CPT/HCPCS: 36415; 80053; 85025; 99283

== ENCOUNTER 2023-11-07 05:41 | Inpatient (IN) | payer MEDICARE, MEDICAID ==
[2023-10-31 15:48] LABS: BASOPHILS % (AUTO) 0.8 % (0-1); EOSINOPHILS # (AUTO) 0.2 X10'3 (0-0.9); EOSINOPHILS % (AUTO) 3.8 % (0-6); LYMPHOCYTES % (AUTO) 15.8 % (21-51); MEAN CORPUSCULAR HEMOGLOBIN 33.6 PG (27.0-31.0); MEAN CORPUSCULAR HGB CONC 33.6 g/dL (33.0-36.5); MEAN CORPUSCULAR VOLUME 100.1 FL (78-98); MEAN PLATELET VOLUME 7.8 FL (7.4-10.4); MONOCYTES # (AUTO) 0.4 X10'3 (0-0.9); MONOCYTES % (AUTO) 6.3 % (2-12); NEUTROPHILS # (AUTO) 4.7 X10'3 (1.8-7.7); NEUTROPHILS % (AUTO) 73.3 % (42-75); PRE OP HEMATOCRIT 34.7 % (35.0-45.0); PRE OP HEMOGLOBIN 11.7 g/dL (12.0-16.0); PRE OP PLATELET COUNT 214 X10'3 (140-440); PRE OP WHITE BLOOD COUNT 6.4 10'3 (4.8-10.8); RED BLOOD COUNT 3.47 X10'6 (4.20-5.60); RED CELL DISTRIBUTION WIDTH 13.6 % (11.5-14.5)
[2023-10-31 16:01] LABS: ALBUMIN 3.3 G/DL (3.4-5.0); ALKALINE PHOSPHATASE 156 IU/L (46-116); BLOOD UREA NITROGEN 19 MG/DL (7-18); BUN/CREATININE RATIO 21.6 (10.0-20.0); CALCIUM 8.8 MG/DL (8.5-10.1); CHLORIDE 101 MMOL/L (99-107); CREATININE 0.88 MG/DL (0.40-0.90); PRE OP ALT 23 U/L (30-65); PRE OP ANION GAP 6 (8-16); PRE OP AST 19 U/L (10-37); PRE OP BILIRUB, TOTAL 0.4 MG/DL (0.0-1.0); PRE OP GLUCOSE 100 MG/DL (70-104); PRE OP POTASSIUM 4.4 MMOL/L (3.4-5.1); PRE OP SODIUM 134 MMOL/L (135-145); TOTAL CARBON DIOXIDE 27.3 MMOL/L (24-32); TOTAL PROTEIN 6.6 G/DL (6.4-8.2); eGFR 62 ML/MIN
[2023-11-07] VITALS (21 sets, daily range): BP systolic 114–148; BP diastolic 48–64; PULSE 45–52; RESP 11–18; TEMP 96.5–98.6; O2SAT 91–100
[~2023-11-07] VITALS: Ht 149.9 cm; Wt 68.0 kg
[~2023-11-07 05:41] MED LIST changes: +ACET-2778 PO; -AMOX500C2 PO; -CLAR500T22 PO; +MULT-1249 PO; -OLME40TA13 PO; +OLME40TA70 PO; -PANT40TA54 PO; -SUCR1TAB34 PO; +[UNRECOGNIZED DRUG - CODE] PO
[2023-11-07] MEDS: famotidine 20mg tablet PO ONE (06:18)
[2023-11-07] MEDS: vancomycin/NS 1 GM in NS 250 ML IV ONE (06:19)
[2023-11-07] MEDS: ringers solution, lacted 1,000 ML IV SCH ×2 (06:19→11:55)
[2023-11-07] MEDS: tranexamic acid 650mg tablet PO ONE (06:19)
[2023-11-07] MEDS: cefazolin 2gm/D5W 100mL 100 ML IV ONE (06:20)
[2023-11-07] MEDS: ROPIVAcaine 0.5% (5mg/ml) 30ml vial ONE (08:20)
[2023-11-07] MEDS ORDERED: sevoflurane 250ml liquid IH ONE (09:12)
[2023-11-07] MEDS ORDERED: fentaNYL/PF 50MCG/1 ML 2ML syringe ONE (09:20)
[2023-11-07] MEDS ORDERED: midazolam 1 mg/ML 2ml injection ONE (09:20)
[2023-11-07] MEDS ORDERED: propofol inj 20 ML IV ONE (09:56)
[2023-11-07] MEDS ORDERED: LIDOcaine 1%/PF 5ML 10 MG/ML VIAL ONE (09:56)
[2023-11-07] MEDS ORDERED: dexamethasone sod phosphate 4mg/ml inj. ONE (09:56)
[2023-11-07] MEDS ORDERED: ondansetron/PF 4mg/2ml inj ONE (09:57)
[2023-11-07] MEDS ORDERED: ROPIVAcaine 0.5% (5mg/ml) 30ml vial ONE (09:57)
[2023-11-07] MEDS ORDERED: enalaprilat dihydrate 2.5mg/2ml vial IV PRN (10:35)
[2023-11-07] MEDS ORDERED: morphine 2 MG/ML inj. syringe IV PRN (10:35)
[2023-11-07] MEDS ORDERED: meperidine/PF 25mg/ml syringe IV PRN ×3 (10:35)
[2023-11-07] MEDS ORDERED: proCHLORperazine 10 MG/2 ml inj IV PRN (10:35)
[2023-11-07] MEDS ORDERED: ondansetron/PF 4mg/2ml inj IV PRN ×2 (10:35→11:55)
[2023-11-07] MEDS ORDERED: morphine 4 MG/ML inj SYRINge IV PRN (10:35)
[2023-11-07] MEDS ORDERED: ROPIVAcaine 0.2% (10 MG/5 ML) BOLUS INJECTION INTERSCALE PRN (10:35)
[2023-11-07] MEDS ORDERED: labetalol 20mg/4ml (5mg/ml) syringe IV PRN (10:35)
[2023-11-07] MEDS ORDERED: diphenhydrAMINE 25mg capsule PO PRN ×2 (11:55)
[2023-11-07] MEDS ORDERED: HYDROmorphone inj. 0.5 MG/0.5 ML DISP.SYRIN IV PRN (11:55)
[2023-11-07] MEDS ORDERED: acetaminophen 325mg tablet PO PRN (11:55)
[2023-11-07] MEDS ORDERED: magnesium hydroxide 30ml (MOM) UD suspension PO PRN (11:55)
[2023-11-07] MEDS ORDERED: bisacodyl 10mg suppository rectal RC PRN (11:55)
[2023-11-07] MEDS ORDERED: HYDROmorphone 1 mg/ml syringe IV PRN (11:55)
[2023-11-07] MEDS ORDERED: non-formulary drug (Acetaminophen (Acetaminophen ER) 1 TAB) PO PRN (11:55)
[2023-11-07] MEDS ORDERED: meclizine 12.5mg tablet PO PRN (11:55)
[2023-11-07] MEDS: ROPIVAcaine 0.2%/PF PUMP/bolus 545 ML INTERSCALE SCH (12:06)
[2023-11-07] MEDS: acetaminophen 325mg tablet PO SCH (13:55)
[2023-11-07] MEDS: potassium cl 20mEq in 1/2 NS 1,000 ML IV SCH (13:56)
[2023-11-07] MEDS: ceFAZolin/D5W- 1GM premix 50 ML IV SCH (16:17)
[2023-11-07] MEDS: vancomycin/NS 1 GM ADD-VANTAGE 250 ML IV SCH (19:50)
[2023-11-07] MEDS: sennosides 8.6mg tablet PO SCH (20:29)
[2023-11-07] MEDS: Melatonin 3mg tablet PO SCH (20:29)
[2023-11-07] MEDS: gabapentin 100mg capsule PO SCH (20:29)
[2023-11-08 02:00] VITALS: BP 120/50; PULSE 53; RESP 14; TEMP 97.9; O2SAT 96
[2023-11-08] MEDS: oxyCODONE IR 5mg (immed. release) tablet PO PRN ×2 (05:44→11:22)
[2023-11-08 07:14] LABS: BASOPHILS % (AUTO) 0.5 % (0-1); EOSINOPHILS % (AUTO) 0.2 % (0-6); HEMATOCRIT 33.9 % (35.0-45.0); HEMOGLOBIN 11.2 g/dl (12.0-16.0); LYMPHOCYTES # (AUTO) 1.2 X10'3 (1.1-4.8); LYMPHOCYTES % (AUTO) 11.2 % (21-51); MEAN CORPUSCULAR HEMOGLOBIN 33.6 PG (27.0-31.0); MEAN CORPUSCULAR HGB CONC 33.2 g/dL (33.0-36.5); MEAN CORPUSCULAR VOLUME 101.1 FL (78-98); MONOCYTES # (AUTO) 0.5 X10'3 (0-0.9); MONOCYTES % (AUTO) 4.7 % (2-12); NEUTROPHILS % (AUTO) 83.4 % (42-75); PLATELET COUNT 203 X10'3 (140-440); RED BLOOD COUNT 3.35 X10'6 (4.20-5.60); RED CELL DISTRIBUTION WIDTH 13.5 % (11.5-14.5); WHITE BLOOD COUNT 10.8 X10'3 (4.5-11.0)
[2023-11-08 07:26] LABS: ANION GAP 8 (8-16); CHLORIDE 104 MMOL/L (99-107); SODIUM 134 MMOL/L (135-145); TOTAL CARBON DIOXIDE 21.6 MMOL/L (24-32)
[2023-11-08 08:00] VITALS: RESP 14; O2SAT 98
[2023-11-08] MEDS: celeCOXIB 100mg capsule PO SCH (08:48)
[2023-11-08] MEDS: multivitamins, therapeutics tablet PO SCH (08:49)
[2023-11-08] MEDS: losartan 50mg tablet PO SCH (08:52)
[2023-11-08] MEDS: atorvastatin 20mg tablet PO SCH (08:53)
[2023-11-08 08:54] VITALS: BP_SYST 129; PULSE 69
[2023-11-08] MEDS: buPROPion SR 150mg tablet PO SCH (08:54)
[2023-11-08] MEDS: amLODIPine 5mg tablet PO SCH (08:54)
[2023-11-08] MEDS: aspirin 325mg tablet PO SCH (08:55)
[2023-11-08] MEDS: psyllium seed 5.8 gm packet (sugar-free) PO SCH (08:57)
[2023-11-08 13:20] VITALS: RESP 14
[2023-11-08] MEDS ORDERED: celeCOXIB 100mg capsule PO SCH (20:00)
[2023-11-09] MEDS ORDERED: acetaminophen 325mg tablet PO PRN (13:15)
== END 2023-11-08 14:45 | disposition home health service (06) | DRG 483 ==
LOC: PAS IN 05:41 → ORTHO 4S 12:45
PROVIDERS: ADMIT Orthopaedic Surgery; ATTEND Orthopaedic Surgery
PROC: 0LS30ZZ Reposition Right Upper Arm Tendon, Open Approach (ICD-10-PCS; 2023-11-07)
PROC: 3E0T3BZ Introduction of Anesthetic Agent into Peripheral Nerves and Plexi, Percutaneous Approach (ICD-10-PCS; 2023-11-07)
PROC: 3E0T33Z Introduction of Anti-inflammatory into Peripheral Nerves and Plexi, Percutaneous Approach (ICD-10-PCS; 2023-11-07)
PROC: 0RRJ00Z Replacement of Right Shoulder Joint with Reverse Ball and Socket Synthetic Substitute, Open Approach (ICD-10-PCS; principal; 2023-11-07 09:12)
DX: M19.011 Primary osteoarthritis, right shoulder (principal); M75.121 Complete rotator cuff tear or rupture of right shoulder, not specified as traumatic; I10 Essential (primary) hypertension; M65.811 Other synovitis and tenosynovitis, right shoulder; K21.9 Gastro-esophageal reflux disease without esophagitis; Z86.73 Personal history of transient ischemic attack (TIA), and cerebral infarction without residual deficits; Z90.710 Acquired absence of both cervix and uterus; Z90.49 Acquired absence of other specified parts of digestive tract
CPT/HCPCS: 36415; 80051; 80053; 82948; 85025; 87081; 97116; 97161; 97530; A4565; A4618; A7000; C1776; G0378; J0690; J1100; J2250; J2405; J2704; J2795; J3010; J3370; J3480; J3490; J7040; J7120